=== PATIENT | female | born 1980 | race African-American/Black ===

== ENCOUNTER 2017-03-14 17:21 | Emergency (ER) | payer BC, OTHER ==
[~2017-03-14] VITALS: Ht 162.6 cm; Wt 117.9 kg
[~2017-03-14 17:21] MED LIST: IBUPROFEN 400400 M2 PO; NOHOMEMEDICATIONS; OXYCODONE HCL15 MG PO; PREDNISONE 10 M10 MG PO; PROMETH-CODEIN 65 ML PO
[2017-03-14 19:00] VITALS: BP 153/89
== END 2017-03-14 19:08 | disposition home or self-care (01) ==
LOC: ER 17:21
DX: S83.91XA Sprain of unspecified site of right knee, initial encounter (principal); Z98.890 Other specified postprocedural states; Z88.6 Allergy status to analgesic agent; Z87.891 Personal history of nicotine dependence; V09.9XXA Pedestrian injured in unspecified transport accident, initial encounter; Y93.89 Activity, other specified; Y92.89 Other specified places as the place of occurrence of the external cause; Y99.8 Other external cause status

== ENCOUNTER 2017-04-09 21:29 | Emergency (ER) | payer BC, OTHER ==
[~2017-04-09] VITALS: Ht 165.1 cm; Wt 122.5 kg
--- NOTE | ~2017-04-09 | EKG ---
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
[2017-04-09 22:07] LABS: ABSOLUTE NEUTROPHILS 9.3 thou/uL (1.4-8.2); BASOPHILS 0.9 % (0.0-2.0); EOSINOPHILS 0.5 % (0.0-3.0); HEMATOCRIT 39.7 % (37.0-47.0); HEMOGLOBIN 12.9 gm/dL (12.0-15.0); LYMPHOCYTES 32.1 % (24.0-44.0); MCH 27.3 pg (26.0-34.0); MCHC 32.6 g/dL (28.0-37.0); MCV 83.8 fL (80.0-100.0); MONOCYTES 4.2 % (1.0-8.0); POLYS 62.3 % (36.0-66.0); RBC 4.74 mil/uL (4.20-5.00); RDW 13.9 % (10.5-14.5); WBC 14.9 thou/uL (4.0-11.0)
[2017-04-09 22:08] LABS: MANUAL DIFF NO
[2017-04-09] MEDS ORDERED: OXYCONTIN80 M1 (22:08)
[2017-04-09] MEDS ORDERED: NEURONTIN 300300 M1 (22:09)
[2017-04-09 22:10] LABS: PLATELET COUNT 287 thou/uL (150-400)
[2017-04-09 22:18] LABS: ANION GAP 12 mmol/L (7-16); BUN 10 mg/dL (7-18); CALCIUM 9.6 mg/dL (8.5-10.1); CHLORIDE 106 mmol/L (98-107); CO2 23 mmol/L (21-32); CREATININE 0.9 mg/dL (0.6-1.0); POTASSIUM 4.1 mmol/L (3.5-5.1); SODIUM 141 mmol/L (136-145)
[2017-04-09 22:21] LABS: GLUCOSE 115 mg/dL (74-106)
[2017-04-09 22:24] LABS: APTT 26.7 Seconds (24.5-32.8)
[2017-04-09 22:25] LABS: ALBUMIN 3.7 g/dL (3.4-5.0); ALKALINE PHOSPHATASE 145 U/L (46-116); MAGNESIUM 2.1 mg/dL (1.8-2.4); SGOT 20 U/L (15-37); SGPT 19 U/L (30-65); TOTAL BILIRUBIN 0.2 mg/dL (<0.1-1.0); TROPONIN-I < 0.04 ng/mL (<0.04-0.07)
[2017-04-09 22:29] LABS: PROTIME 10.1 Seconds (9.3-11.4)
[2017-04-09] MEDS ORDERED: PERCOCET 5-3251 EACH PO (23:16)
[2017-04-09] MEDS ORDERED: ATIVAN0.5 MG PO (23:16)
[2017-04-10 01:03] VITALS: BP 151/97
== END 2017-04-10 01:05 | disposition home or self-care (01) ==
LOC: ER 21:29
PROVIDERS: Emergency Medicine
DX: F41.0 Panic disorder [episodic paroxysmal anxiety] (principal); G89.29 Other chronic pain; M54.5 Low back pain; R20.9 Unspecified disturbances of skin sensation; L72.3 Sebaceous cyst; M79.606 Pain in leg, unspecified; Z90.49 Acquired absence of other specified parts of digestive tract; Z90.722 Acquired absence of ovaries, bilateral; Z88.6 Allergy status to analgesic agent; Z87.891 Personal history of nicotine dependence

== ENCOUNTER 2017-09-19 05:03 | Emergency (ER) | payer BC, OTHER ==
[~2017-09-19] VITALS: Ht 162.6 cm; Wt 104.3 kg
[~2017-09-19 05:03] MED LIST changes: +ATIVAN0.5 MG PO; +NEURONTIN 300300 M1; +OXYCONTIN80 M1; +PERCOCET 5-3251 EACH PO
[2017-09-19] MEDS ORDERED: ROXICODONE15 M1 PO (05:48)
== END 2017-09-19 06:32 | disposition home or self-care (01) ==
LOC: ER 05:03
DX: Z76.0 Encounter for issue of repeat prescription (principal); G89.29 Other chronic pain; M54.5 Low back pain; M79.7 Fibromyalgia; M79.604 Pain in right leg; Z90.49 Acquired absence of other specified parts of digestive tract; Z90.722 Acquired absence of ovaries, bilateral; Z88.6 Allergy status to analgesic agent; Z87.891 Personal history of nicotine dependence